=== PATIENT | male | born 1955 | race Caucasian/White ===

== ENCOUNTER 2023-08-05 01:00 | Observation (INO) | payer MEDICARE ==
[2023-08-05] MEDS ORDERED: SODIUM CHLORIDE 0.9% 500 ML 500 ML IV STA (01:15)
[2023-08-05 01:17] LABS: Glucose,Whole Blood 157 mg/dL (70-110)
[2023-08-05 01:29] LABS: Anisocytosis Slight; Basophils % (A) 0 %; Eosinophils # (A) 0.3 k/uL (0-0.7); Eosinophils % (A) 8 %; HCT 31.1 % (39.0-53.0); HGB 9.8 gm/dL (13.0-17.5); Hypochromasia Marked; Lymphocytes # (A) 1.1 k/uL (1.0-4.8); Lymphocytes % (A) 26 %; MCH 24.5 pg (25.0-35.0); MCHC 31.4 g/dL (31.0-37.0); Mean Platelet Volume 8.3; Microcytosis Slight; Monocytes # (A) 0.2 k/uL (0-1.0); Monocytes % (A) 6 %; Neutrophils # (A) 2.4 k/uL (1.3-7.7); Neutrophils % (A) 58 %; Platelet Count 178 k/uL (150-450); RBC 3.98 m/uL (4.30-5.90); RDW 16.2 % (11.5-15.5); WBC 4.2 k/uL (3.8-10.6)
[2023-08-05 01:37] LABS: ALT 15 U/L (4-49); AST 23 U/L (17-59); African American GFR (CKD) 86 (>60 ml/min/1.73 sqM); Albumin 3.8 g/dL (3.5-5.0); Alkaline Phosphatase 47 U/L (38-126); Anion Gap 12 mmol/L; Blood Urea Nitrogen 8 mg/dL (9-20); Calcium 8.9 mg/dL (8.4-10.2); Carbon Dioxide 21 mmol/L (22-30); Chloride 102 mmol/L (98-107); Glucose 156 mg/dL (74-99); Magnesium 1.5 mg/dL (1.6-2.3); Non-African American GFR(CKD) 75 (>60 ml/min/1.73 sqM); Potassium 3.7 mmol/L (3.5-5.1); Sodium 135 mmol/L (137-145); Total Bilirubin 0.5 mg/dL (0.2-1.3)
[2023-08-05 01:57] LABS: Alcohol <10 mg/dL
[2023-08-05 02:08] LABS: INR 1.4 (<1.2); Partial Thromboplastin Time 23.5 sec (22.0-30.0); Prothrombin Time 14.1 sec (10.0-12.5)
--- NOTE | 2023-08-05 02:15 | ED ---
General Adult HPI - General Chief complaint: Syncope Stated complaint: Syncope Time Seen by Provider: 08/05/23 01:30 Source: EMS Mode of arrival: EMS Limitations: no limitations - History of Present Illness Initial comments: 67-year-old male with past medical history of A. fib who presents to the emergency department after he had a syncopal episode. Patient states that he wasn't really feeling well this evening. He was can use the restroom before he went to bed. He walked into the bathroom and passed out. He fell hitting his head on the wall. He had a loss of consciousness of approximately 1 minute. His heard him fall. She and her 2 sons attempted to pick the patient up however he was extremely weak. There is no seizure-like activity. The patient does take xarelto. He denies any headaches or visual changes. Denies any chest pain or shortness of breath. No nausea or vomiting. Denies any neck or back pain. No abdominal pain. No recent illnesses. No recent medication changes. No other alleviating, precipitating or modifying factors - Related Data Allergies Allergy/AdvReac Type Severity Reaction Status Date / Time Penicillins Allergy Rash/Hives Verified 08/05/23 01:34 Review of Systems ROS Statement: Those systems with pertinent positive or pertinent negative responses have been documented in the HPI. ROS Other: All systems not noted in ROS Statement are negative. General Exam Limitations: no limitations General appearance: alert, in no apparent distress Head exam: Present: normocephalic, other (Abrasion to the chin and right parietal region. No obvious step-offs) Eye exam: Present: normal appearance, PERRL, EOMI. Absent: scleral icterus, conjunctival injection, periorbital swelling ENT exam: Present: normal exam, mucous membranes moist Neck exam: Present: normal inspection. Absent: tenderness, meningismus, lymphadenopathy Respiratory exam: Present: normal lung sounds bilaterally. Absent: respiratory distress, wheezes, rales, rhonchi, stridor Cardiovascular Exam: Present: regular rate, normal rhythm, normal heart sounds. Absent: systolic murmur, diastolic murmur, rubs, gallop, clicks GI/Abdominal exam: Present: soft, normal bowel sounds. Absent: distended, tenderness, guarding, rebound, rigid Extremities exam: Present: normal inspection, full ROM, normal capillary refill. Absent: tenderness, pedal edema, joint swelling, calf tenderness Back exam: Present: normal inspection Neurological exam: Present: alert, oriented X3, CN II-XII intact Psychiatric exam: Present: normal affect, normal mood Skin exam: Present: warm, dry, intact, normal color. Absent: rash Course Vital Signs 08/05/23 08/05/23 01:23 02:48 Pulse Rate 75 Pulse Rate [ 80 Sitting Professor Of Food Biochemistry] Pulse Rate [ 89 Standing Professor Of Food Biochemistry ] Pulse Rate [ 67 Supine Professor Of Food Biochemistry] Respiratory 18 Rate Blood Pressure 116/67 Blood Pressure 115/58 [Left Arm Sitting] Blood Pressure 114/62 [Left Arm Standing] Blood Pressure 106/66 [Left Arm Supine] O2 Sat by Pulse 98 Oximetry Medical Decision Making - Medical Decision Making Was pt. sent in by a medical professional or institution (, [facility], STACKER, urgent care, hospital, or shelter...) When possible be specific @ -No Did you speak to anyone other than the patient for history (EMS, parent, family, police, friend...)? What history was obtained from this source @ -Spoke with EMS and the for history Did you review nursing and triage notes (agree or disagree)? Why? @ -I reviewed and agree with nursing and triage notes Were old charts reviewed (outside hosp., previous admission, EMS record, old EKG, old radiological studies, urgent care reports/EKG's, shelter records)? Report findings @ -No old charts were reviewed Differential Diagnosis (chest pain, altered mental status, abdominal pain women, abdominal pain men, vaginal bleeding, weakness, fever, dyspnea, syncope, headache, dizziness, GI bleed, back pain, seizure, CVA, palpatations, mental health, musculoskeletal)? @ -Differential Syncope: Valvular disease, hypertrophic cardiomyopathy, pulmonary embolism, tamponade, tachycardia, bradycardia, UT, hypovolemia, hemorrhage, dissection, anemia, intracranial hemorrhage, seizure, hypoglycemia, carbon monoxide poisoning, this is not meant to be an all-inclusive list. EKG interpreted by me (3pts min.). @ -Yes and demonstrates A. fib with a rate of 53. QRS 100. QTC of 421. No acute ST segment elevations or depressions X-rays interpreted by me (1pt min.). @ -Yes and demonstrates no acute intrathoracic process CT interpreted by me (1pt min.). @ -Yes and demonstrates no acute intracranial process U/S interpreted by me (1pt. min.). @ -None done What testing was considered but not performed or refused? (CT, X-rays, U/S, labs)? Why? @ -None What meds were considered but not given or refused? Why? @ -None Did you discuss the management of the patient with other professionals (professionals i.e. DrAndreina, PA, STACKER, lab, RT, psych nurse, social media strategist, mimeograph operator, teacher, canine enforcement officer, foster care case manager)? Give summary @ -Spoke with Maggie from [facility] who agreed to admit the patient Was smoking cessation discussed for >3mins.? @ -No Was critical care preformed (if so, how long)? @ -No Were there social determinants of health that impacted care today? How? (Homelessness, low income, unemployed, alcoholism, drug addiction, transportation, low edu. Level, literacy, decrease access to med. care, halfway, rehab)? @ -No Was there de-escalation of care discussed even if they declined (Discuss DNR or withdrawal of care, Hospice)? DNR status @ -No What co-morbidities impacted this encounter? (DM, HTN, Smoking, COPD, CAD, Cancer, CVA, ARF, Chemo, Hep., AIDS, mental health diagnosis, sleep apnea, morbid obesity)? @ -A. fib Was patient admitted / discharged? Hospital course, mention meds given and route, prescriptions, significant lab abnormalities, going to OR and other pertinent info. @ -Upon arrival patient was placed in a trauma 1. History and physical exam was performed. He is hooked to continuous pulse ox and cardiac monitoring. 12-lead EKG is obtained which demonstrates A. fib. EMS had noted that the patient was bradycardic into the 40s for them. Laboratory studies are conducted. He is se nt for chest x-ray and a CT of his brain as he did fall and have a head injury on anticoagulation. Laboratory studies demonstrate a microcytic anemia. Patient also has low magnesium. This is replaced. CT brain does not demonstrate any acute intracranial process. I did recommend admission due to his bradycardia. Patient was agreeable to this. Spoke with Maggie from [facility] who agreed to admit the patient. Undiagnosed new problem with uncertain prognosis? @ -yes Drug Therapy requiring intensive monitoring for toxicity (Heparin, Nitro, Insulin, Cardizem)? @ -No Were any procedures done? @ -No Diagnosis/symptom? @ -Acute syncope, blunt head trauma, forehead abrasion, A. fib with slow ventricular response Acute, or Chronic, or Acute on Chronic? @ -Acute Uncomplicated (without systemic symptoms) or Complicated (systemic symptoms)? @ -complicated Side effects of treatment? @ -No Exacerbation, Progression, or Severe Exacerbation? @ -No Poses a threat to life or bodily function? How? (Chest pain, USA, UT, pneumonia, PE, COPD, DKA, ARF, appy, cholecystitis, CVA, Diverticulitis, Homicidal, Suicidal, threat to staff... and all critical care pts) @ -No - Lab Data Result diagrams: 08/05/23 01:06 08/05/23 01:06 Lab Results 08/05/23 08/05/23 08/05/23 Range/Units 01:06 01:06 01:06 WBC 4.2 (3.8-10.6) k/uL RBC 3.98 L (4.30-5.90) m/uL Hgb 9.8 L (13.0-17.5) gm/dL Hct 31.1 L (39.0-53.0) % MCV 78.0 L (80.0-100.0) fL MCH 24.5 L (25.0-35.0) pg MCHC 31.4 (31.0-37.0) g/dL RDW 16.2 H (11.5-15.5) % Plt Count 178 (150-450) k/uL MPV 8.3 Neutrophils % 58 % Lymphocytes % 26 % Monocytes % 6 % Eosinophils % 8 % Basophils % 0 % Neutrophils # 2.4 (1.3-7.7) k/uL Lymphocytes # 1.1 (1.0-4.8) k/uL Monocytes # 0.2 (0-1.0) k/uL Eosinophils # 0.3 (0-0.7) k/uL Basophils # 0.0 (0-0.2) k/uL Hypochromasia Marked Anisocytosis Slight Microcytosis Slight PT 14.1 H (10.0-12.5) sec INR 1.4 H (<1.2) APTT 23.5 (22.0-30.0) sec Sodium 135 L (137-145) mmol/L Potassium 3.7 (3.5-5.1) mmol/L Chloride 102 (98-107) mmol/L Carbon Dioxide 21 L (22-30) mmol/L Anion Gap 12 mmol/L BUN 8 L (9-20) mg/dL Creatinine 1.03 (0.66-1.25) mg/dL Est GFR (CKD-EPI)AfAm 86 (>60 ml/min/1.73 sqM) Est GFR (CKD-EPI)NonAf 75 (>60 ml/min/1.73 sqM) Glucose 156 H (74-99) mg/dL POC Glucose (mg/dL) (70-110) mg/dL POC Glu Gate Tender ID Calcium 8.9 (8.4-10.2) mg/dL Magnesium 1.5 L (1.6-2.3) mg/dL Total Bilirubin 0.5 (0.2-1.3) mg/dL AST 23 (17-59) U/L ALT 15 (4-49) U/L Alkaline Phosphatase 47 (38-126) U/L Troponin I (0.000-0.034) ng/mL Total Protein 7.0 (6.3-8.2) g/dL Albumin 3.8 (3.5-5.0) g/dL Serum Alcohol <10 mg/dL 08/05/23 08/05/23 Range/Units 01:06 01:16 WBC (3.8-10.6) k/uL RBC (4.30-5.90) m/uL Hgb (13.0-17.5) gm/dL Hct (39.0-53.0) % MCV (80.0-100.0) fL MCH (25.0-35.0) pg MCHC (31.0-37.0) g/dL RDW (11.5-15.5) % Plt Count (150-450) k/uL MPV Neutrophils % % Lymphocytes % % Monocytes % % Eosinophils % % Basophils % % Neutrophils # (1.3-7.7) k/uL Lymphocytes # (1.0-4.8) k/uL Monocytes # (0-1.0) k/uL Eosinophils # (0-0.7) k/uL Basophils # (0-0.2) k/uL Hypochromasia Anisocytosis Microcytosis PT (10.0-12.5) sec INR (<1.2) APTT (22.0-30.0) sec Sodium (137-145) mmol/L Potassium (3.5-5.1) mmol/L Chloride (98-107) mmol/L Carbon Dioxide (22-30) mmol/L Anion Gap mmol/L BUN (9-20) mg/dL Creatinine (0.66-1.25) mg/dL Est GFR (CKD-EPI)AfAm (>60 ml/min/1.73 sqM) Est GFR (CKD-EPI)NonAf (>60 ml/min/1.73 sqM) Glucose (74-99) mg/dL POC Glucose (mg/dL) 157 H (70-110) mg/dL POC Glu Gate Tender ID Pepito Solano Calcium (8.4-10.2) mg/dL Magnesium (1.6-2.3) mg/dL Total Bilirubin (0.2-1.3) mg/dL AST (17-59) U/L ALT (4-49) U/L Alkaline Phosphatase (38-126) U/L Troponin I <0.012 (0.000-0.034) ng/mL Total Protein (6.3-8.2) g/dL Albumin (3.5-5.0) g/dL Serum Alcohol mg/dL Disposition Clinical Impression: Syncope, Bradycardia, Blunt head trauma, Anticoagulant effect, Hypomagnesemia, Afib, Anemia Disposition: ADMITTED IP TO THIS [facility] Condition: Stable Is patient prescribed a controlled substance at d/c from ED?: No Time of Disposition: :44 Decision to Admit Reason: Admit from EC Decision Date: 08/05/23 Decision Time: :44
[2023-08-05] MEDS ORDERED: MAGNESIUM SULFATE-D5W PMX 1 GM in DEXTROSE/WATER 1 100ML.BAG IVPB ONE (02:26)
--- NOTE | 2023-08-05 02:32 | CT ---
EXAM: CT Head Without Intravenous Contrast CLINICAL HISTORY: ITS.REASON CT Reason: syncope, head injury on eliquis TECHNIQUE: Axial computed tomography images of the head/brain without intravenous contrast. CTDI is 45.2 mGy and DLP is 1125 mGy-cm. This CT exam was performed using one or more of the following dose reduction techniques: automated exposure control, adjustment of the mA and/or kV according to patient size, and/or use of iterative reconstruction technique. COMPARISON: None FINDINGS: Brain: No acute infarct or hemorrhage identified. No extra-axial fluid collection. No mass effect or midline shift. Scattered areas of hypoattenuation in the supratentorial white matter likely represent chronic small vessel ischemic changes. Ventricles and sulci: Prominence of the ventricles and sulci is likely secondary to cerebral volume loss. Bones: Normal. No bony lesion or acute fracture. Subcutaneous tissues: Normal. Sinuses: Mild mucosal thickening in the maxillary sinuses. Small polyp versus mucous retention cyst in the left sphenoid sinus. Mild mucosal thickening in the ethmoid air cells. Mastoid air cells: Normal. Orbits: Grossly unremarkable. Other: Atherosclerotic calcifications in the intracranial vasculature. IMPRESSION: 1. No acute intracranial abnormality. 2. Mild chronic small vessel ischemic changes and cerebral volume loss. EXAM: CT Cervical Spine Without Intravenous Contrast CLINICAL HISTORY: ITS.REASON CT Reason: syncope, head injury on eliquis TECHNIQUE: Axial computed tomography images of the cervical spine without intravenous contrast. CTDI is 10.8 mGy and DLP is 338 mGy-cm. This CT exam was performed using one or more of the following dose reduction techniques: automated exposure control, adjustment of the mA and/or kV according to patient size, and/or use of iterative reconstruction technique. COMPARISON: None FINDINGS: Bones: Normal alignment. No acute fracture or bony lesion. Disc spaces: No subluxation. Degenerative changes of the spine. Soft tissues: Normal. Other: Mild paranasal sinus disease. . Atherosclerotic changes of the vasculature. Emphysematous changes in the visualized upper lungs. IMPRESSION: No acute traumatic abnormality.
[2023-08-05] MEDS ORDERED: NALOXONE 0.4 MG/ML 1 ML VIAL IV PRN (02:44)
[2023-08-05] MEDS: SODIUM CHLORIDE 0.9% 1,000 ML IV SCH ×2 (03:24→15:52)
--- NOTE | 2023-08-05 06:34 | XR ---
EXAM: XR Chest, 2 Views CLINICAL HISTORY: ITS.REASON XR Reason: syncope TECHNIQUE: Frontal and lateral views of the chest. COMPARISON: No relevant prior studies available. IMPRESSION: 1. Cardiomegaly without acute cardiopulmonary abnormality.
[2023-08-05] MEDS ORDERED: ACETAMINOPHEN TAB 500 MG TAB PO PRN (08:07)
[2023-08-05] MEDS ORDERED: ALBUTEROL NEBULIZED 2.5 MG/3 ML INHALATION PRN (08:07)
--- NOTE | 2023-08-05 08:13 | P.HPIM ---
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 No wound. No urine or bowel incontinence. He had some dizziness. But not rest pain. No abdominal pain vomiting or diarrhea. No urinary complaints. He denies smoking alcohol or illicit drugs. Currently he complains fine, no weakness or numbness in the upper or lower extremity, his right leg flexion of the hip as possible but associated with some pain in the area after he fell. Therefore we will check chest x-ray Labs reviewed showing mild anemia with 9.8, rest of CBC, BMP liver enzymes are unremarkable Chest x-ray showed cardiomegaly with no consolidation or acute process EKG: Showing atrial fibrillation with slow ventricular rate at [address] of the brain: No acute process CT negative for acute processof the cervical spine Review of Systems Review of systems CONSTITUTIONAL: No fever, no malaise, no fatigue. HEENT: No recent visual problems or hearing problems. Denied any sore throat. CARDIOVASCULAR: No orthopnea, PND, no palpitations, no syncope. PULMONARY: No shortness of breath, no cough, no hemoptysis. GASTROINTESTINAL: No diarrhea, no nausea, no vomiting, no abdominal pain. Normoactive bowel sounds. NEUROLOGICAL: No headaches, no weakness, no numbness. HEMATOLOGICAL: Denies any bleeding or petechiae. GENITOURINARY: Denies any burning micturition, frequency, or urgency. MUSCULOSKELETAL/RHEUMATOLOGICAL: Denies any joint pain, swelling, or any muscle pain. ENDOCRINE: Denies any polyuria or polydipsia. Medications and Allergies Home Medications Medication Instructions Recorded Confirmed Type Acetaminophen Tab [Tylenol Tab] 1,000 mg PO Q8H PRN 08/05/23 08/05/23 History Albuterol Sulfate [Albuterol 2 puff PO RT-Q4H PRN 08/05/23 08/05/23 History Sulfate Hfa] Atorvastatin [Lipitor] 10 mg PO HS 08/05/23 08/05/23 History Baclofen 10 mg PO BID 08/05/23 08/05/23 History Cholecalciferol [Vitamin D3 (25 50 mcg PO DAILY 08/05/23 08/05/23 History Mcg = 1000 Iu)] Digoxin [Digitek] 125 mcg PO DAILY 08/05/23 08/05/23 History Metoprolol Tartrate [Lopressor] 75 mg PO BID 08/05/23 08/05/23 History Omeprazole [PriLOSEC] 40 mg PO AC-BID 08/05/23 08/05/23 History Rivaroxaban [Xarelto] 20 mg PO HS 08/05/23 08/05/23 History allopurinoL 300 mg PO DAILY 08/05/23 08/05/23 History metFORMIN HCL ER [Glucophage XR] 500 mg PO PC-BID@0900,1300 08/05/23 08/05/23 History traZODone HCL [Desyrel] 100 mg PO HS 08/05/23 08/05/23 History Allergies Allergy/AdvReac Type Severity Reaction Status Date / Time Penicillins Allergy Rash/Hives Verified 08/05/23 06:50 Physical Exam Vitals: Vital Signs Pulse Pulse Pulse Pulse Resp BP BP 08/05/23 06:33 58 L 18 116/68 08/05/23 05:04 64 18 121/69 08/05/23 02:48 80 89 67 115/58 08/05/23 01:23 75 18 116/67 BP BP Pulse Ox 08/05/23 06:33 97 08/05/23 05:04 97 08/05/23 02:48 114/62 106/66 08/05/23 01:23 98 Intake and Output 08/04/23 08/05/23 08/05/23 22:59 06:59 14:59 Other: Weight 81.647 kg GENERAL: The patient is alert and oriented x3, not in any acute distress. Well developed, well nourished. HEENT: Pupils are round and equally reacting to light. EOMI. No scleral icterus. No conjunctival pallor. Normocephalic, atraumatic. No pharyngeal erythema. No thyromegaly. CARDIOVASCULAR: S1 and S2 present. No murmurs, rubs, or gallops. PULMONARY: Chest is clear to auscultation, no wheezing , no crackles. ABDOMEN: Soft, nontender, nondistended, normoactive bowel sounds. No palpable organomegaly. MUSCULOSKELETAL: No joint swelling or deformity. EXTREMITIES: No cyanosis, clubbing, or pedal edema. NEUROLOGICAL: Gross neurological examination did not reveal any focal deficits. SKIN: No rashes. no petechiae. Results CBC & Chem 7: 08/05/23 01:06 08/05/23 01:06 Labs: Abnormal Lab Results - Last 24 Hours (Table) 08/05/23 08/05/23 08/05/23 Range/Units 01:06 01:06 01:06 RBC 3.98 L (4.30-5.90) m/uL Hgb 9.8 L (13.0-17.5) gm/dL Hct 31.1 L (39.0-53.0) % MCV 78.0 L (80.0-100.0) fL MCH 24.5 L (25.0-35.0) pg RDW 16.2 H (11.5-15.5) % PT 14.1 H (10.0-12.5) sec INR 1.4 H (<1.2) Sodium 135 L (137-145) mmol/L Carbon Dioxide 21 L (22-30) mmol/L BUN 8 L (9-20) mg/dL Glucose 156 H (74-99) mg/dL POC Glucose (mg/dL) (70-110) mg/dL Magnesium 1.5 L (1.6-2.3) mg/dL 08/05/23 Range/Units 01:16 RBC (4.30-5.90) m/uL Hgb (13.0-17.5) gm/dL Hct (39.0-53.0) % MCV (80.0-100.0) fL MCH (25.0-35.0) pg RDW (11.5-15.5) % PT (10.0-12.5) sec INR (<1.2) Sodium (137-145) mmol/L Carbon Dioxide (22-30) mmol/L BUN (9-20) mg/dL Glucose (74-99) mg/dL POC Glucose (mg/dL) 157 H (70-110) mg/dL Magnesium (1.6-2.3) mg/dL Assessment and Plan Assessment: Syncope with fall and blunt head trauma persistant atrial fibrillation on Xarelto with slow VR Hypertension Diabetes mellitus Hyperlipidemia Plan: Continue with telemetry monitoring Cardiology consult Check digoxin level. May consider discontinuing digoxin per roofing contractor Follow-up echocardiogram Labs and medication were reviewed.. Continue same treatment. Continue with symptomatic treatment. Resume home medication. Monitor labs and vitals. DVT and GI prophylaxis. Further recommendations as per clinical course of the patient DVT prophylaxis:xarelto GI Prophylaxis: Pepcid PT/OT: Pending Prognosis is guarded
[2023-08-05] MEDS: metFORMIN 500 MG TAB PO SCH ×2 (09:25→15:52)
[2023-08-05] MEDS: METOPROLOL TARTRATE 25 MG TAB PO SCH ×2 (09:25→19:36)
[2023-08-05] MEDS: BACLOFEN 10 MG TAB PO SCH ×2 (09:25→19:36)
[2023-08-05] MEDS: allopurinoL 300 MG TAB PO SCH (09:25)
--- NOTE | 2023-08-05 09:36 | XR ---
EXAMINATION TYPE: XR Hip Complete 2 views RT DATE OF EXAM: 08/05/2023 Comparison: None Clinical History: 67-year-old male fall with groin pain Findings: No acute fracture, subluxation, or dislocation seen. Mild axial joint space narrowing. No acute fract ure, subluxation, dislocation seen. Impression: Mild degenerative axial joint space narrowing. No acute osseous abnormality seen.
[2023-08-05 11:19] LABS: % Iron Saturation 3.69 (15.00-50.00)
--- NOTE | 2023-08-05 11:22 | CA ---
Transthoracic Echo Report Name: Octaviano Tan Age: 67 Gender: M : 1955 Exam Date: 08/05/2023 09:08 Exam Location: [place] [facility] Ht (in): 70 Wt (lb): 180 Ordering Physician: Rylie Zavala DO Attending/Referring Phys: [id number], Lucas Cupola Tapper Helper Kennedi Kennedy [facility] Procedure CPT: Indications: Syncope Cardiac Hx: Technical Quality: Fair Contrast 1: Total Dose (mL): Contrast 2: Total Dose (mL): MEASUREMENTS (Male / Female) Normal Values 2D ECHO LV Diastolic Diameter PLAX 5.3 cm 4.2 - 5.9 / 3.9 - 5.3 cm LV Systolic Diameter PLAX 3.8 cm IVS Diastolic Thickness 0.8 cm 0.6 - 1.0 / 0.6 - 0.9 cm LVPW Diastolic Thickness 0.9 cm 0.6 - 1.0 / 0.6 - 0.9 cm LV Relative Wall Thickness 0.3 LVOT Diameter 2.0 cm Ascending Aorta Diameter 3.4 cm M-MODE Aortic Root Diameter MM 3.3 cm LA Systolic Diameter MM 4.1 cm LA Ao Ratio MM 1.2 AV Cusp Separation MM 2.0 cm DOPPLER AV Peak Velocity 140.4 cm/s AV Peak Gradient 7.9 mmHg AV Mean Velocity 89.6 cm/s AV Mean Gradient 3.9 mmHg AV Velocity Time Integral 28.5 cm LVOT Peak Velocity 103.8 cm/s LVOT Peak Gradient 4.3 mmHg LVOT Velocity Time Integral 24.1 cm LVOT Stroke Volume 74.1 cm??? LVOT Stroke Volume Index 37.1 ml/m??? LVOT Cardiac Index 2091.8 cm???/min???m??? AV Area Cont Eq vti 2.6 cm??? AV Area Cont Eq pk 2.3 cm??? Mitral E Point Velocity 79.3 cm/s Mitral A Point Velocity 68.7 cm/s Mitral E to A Ratio 1.2 MV Deceleration Time 128.7 ms LV E' Lateral Velocity 8.9 cm/s Mitral E to LV E' Lateral Ratio 8.9 LV E' Septal Velocity 7.5 cm/s Mitral E to LV E' Septal Ratio 10.5 TR Peak Velocity 184.5 cm/s TR Peak Gradient 13.6 mmHg Right Atrial Pressure 8.0 mmHg Pulmonary Artery Systolic Pressu 21.6 mmHg Right Ventricular Systolic Press 21.6 mmHg FINDINGS Left Ventricle Left ventricular wall thickness normal. Left ventricular cavity size normal. Normal left ventricular systolic function with no obvious regional wall motion abnormalities. Left ventricular ejection fraction is estimated at 55%. Right Ventricle Mild right ventricular dilatation. Right Atrium Mild right atrial dilatation. Left Atrium Severe left atrial dilatation. Mitral Valve Mitral valve thickened. No mitral regurgitation. Aortic Valve Trileaflet aortic valve. No aortic valve stenosis or regurgitation. Tricuspid Valve Structurally normal tricuspid valve. Trace tricuspid regurgitation. Pulmonic Valve Pulmonic valve not well visualized. Pericardium No pericardial effusion Aorta Normal size aortic root and proximal ascending aorta. CONCLUSIONS Normal LV size and systolic function. No significant abnormality in the Doppler exam. No pericardial effusion Previewed by: Dr. Shital Abdullahi MD (Electronically Signed) Final Date: 05 August 2023 11:22
--- NOTE | 2023-08-05 12:08 | P.CRDCN ---
History of Present Illness History of present illness: HISTORY OF PRESENT ILLNESS: This is a 67-year-old male with a past medical history significant for with diabetes, hyperlipidemia, and paroxysmal atrial fibrillation. Patient follows with Dr. Garcia. We have been asked to see the patient in consultation for syncope and A. fib with slow ventricular rate. Patient examined at the bedside in the emergency room. The patient states he was walking to the bathroom and passed out. He does report losing consciousness. He states he did not eat much yesterday. He reports having breakfast but states he did not have any lunch or dinner. He states he has had not had much of an appetite since having his colostomy reversal 3 or 4 months ago. He denies any previous episodes of syncope. He denies chest pain or pressure. He denies shortness of breath. Telemetry reveals sinus bradycardia with heart rate ranging between 4060 at the time of examination. * EKG reveals atrial fibrillation with slow ventricular rate * Chest xray cardiomegaly without acute cardiopulmonary process * Laboratory data: Troponin negative 3 * Current home cardiac medications include Lipitor 10 g at night, Xarelto 20 mg at night, metoprolol 75 mg twice a day, and digoxin 125 g daily * Echocardiogram completed revealing ejection fraction 55% with trace TR REVIEW OF SYSTEMS: At the time of my exam: CONSTITUTIONAL: Denies fever or chills. HEENT: Denies blurred vision, vision changes, or eye pain. Denies hemoptysis CARDIOVASCULAR: Denies chest pain. Denies orthopnea. Denies PND. Denies palpitations RESPIRATORY: Denies shortness of breath. GASTROINTESTINAL: Denies abdominal pain. Denies nausea or vomiting. HEMATOLOGIC: Denies bleeding disorders. GENITOURINARY: Denies any blood in urine. SKIN: Denies pruitis. Denies rash. PHYSICAL EXAM: VITAL SIGNS: Reviewed. GENERAL: Well-developed in no acute distress. HEENT: Head is normocephalic. Pupils are equal, round. Sclerae anicteric. Mucous membranes of the mouth are moist. Neck supple. No JVD or thyromegaly LUNGS: Respirations even and unlabored. Lungs essentially clear to auscultation bilaterally. HEART: Regular rate and rhythm. S1 and S2 heard. ABDOMEN: Soft. Nondistended. Nontender. EXTREMITIES: Normal range of motion. No clubbing or cyanosis. Peripheral pulses intact. No lower extremity edema NEUROLOGIC: Awake and alert. Oriented x 3. ASSESSMENT: Syncope Paroxysmal atrial fibrillation with slow ventricular rate Sinus bradycardia Hyperlipidemia Diabetes PLAN: Discontinue Digoxin Continue current dose of metoprolol 75 mg twice a day Continue additional cardiac medications Check TSH Continue telemetry monitoring Further recommendations pending patient's course Nurse practitioner note has been reviewed by physician. Signing provider agrees with the documented findings, assessment, and plan of care. Medications and Allergies Home Medications Medication Instructions Recorded Confirmed Type Acetaminophen Tab [Tylenol Tab] 1,000 mg PO Q8H PRN 08/05/23 08/05/23 History Albuterol Sulfate [Albuterol 2 puff PO RT-Q4H PRN 08/05/23 08/05/23 History Sulfate Hfa] Atorvastatin [Lipitor] 10 mg PO HS 08/05/23 08/05/23 History Baclofen 10 mg PO BID 08/05/23 08/05/23 History Cholecalciferol [Vitamin D3 (25 50 mcg PO DAILY 08/05/23 08/05/23 History Mcg = 1000 Iu)] Digoxin [Digitek] 125 mcg PO DAILY 08/05/23 08/05/23 History Metoprolol Tartrate [Lopressor] 75 mg PO BID 08/05/23 08/05/23 History Omeprazole [PriLOSEC] 40 mg PO AC-BID 08/05/23 08/05/23 History Rivaroxaban [Xarelto] 20 mg PO HS 08/05/23 08/05/23 History allopurinoL 300 mg PO DAILY 08/05/23 08/05/23 History metFORMIN HCL ER [Glucophage XR] 500 mg PO PC-BID@0900,1300 08/05/23 08/05/23 History traZODone HCL [Desyrel] 100 mg PO HS 08/05/23 08/05/23 History Allergies Allergy/AdvReac Type Severity Reaction Status Date / Time Penicillins Allergy Rash/Hives Verified 08/05/23 06:50 Physical Exam Vitals: Vital Signs Pulse Pulse Pulse Pulse Resp BP BP 08/05/23 06:33 58 L 18 116/68 08/05/23 05:04 64 18 121/69 08/05/23 02:48 80 89 67 115/58 08/05/23 01:23 75 18 116/67 BP BP Pulse Ox 08/05/23 06:33 97 08/05/23 05:04 97 08/05/23 02:48 114/62 106/66 08/05/23 01:23 98 Intake and Output 08/04/23 08/05/23 08/05/23 22:59 06:59 14:59 Other: Weight 81.647 kg Results 08/05/23 01:06 08/05/23 01:06 Cardiac Enzymes 08/05/23 08/05/23 08/05/23 Range/Units 01:06 01:06 04:14 AST 23 (17-59) U/L Troponin I <0.012 <0.012 (0.000-0.034) ng/mL 08/05/23 Range/Units 06:19 AST (17-59) U/L Troponin I <0.012 (0.000-0.034) ng/mL Coagulation 08/05/23 Range/Units 01:06 PT 14.1 H (10.0-12.5) sec APTT 23.5 (22.0-30.0) sec CBC 08/05/23 Range/Units 01:06 WBC 4.2 (3.8-10.6) k/uL RBC 3.98 L (4.30-5.90) m/uL Hgb 9.8 L (13.0-17.5) gm/dL Hct 31.1 L (39.0-53.0) % Plt Count 178 (150-450) k/uL Comprehensive Metabolic Panel 08/05/23 Range/Units 01:06 Sodium 135 L (137-145) mmol/L Potassium 3.7 (3.5-5.1) mmol/L Chloride 102 (98-107) mmol/L Carbon Dioxide 21 L (22-30) mmol/L BUN 8 L (9-20) mg/dL Creatinine 1.03 (0.66-1.25) mg/dL Glucose 156 H (74-99) mg/dL Calcium 8.9 (8.4-10.2) mg/dL AST 23 (17-59) U/L ALT 15 (4-49) U/L Alkaline Phosphatase 47 (38-126) U/L Total Protein 7.0 (6.3-8.2) g/dL Albumin 3.8 (3.5-5.0) g/dL Current Medications Generic Name Dose Route Start Last Admin Trade Name Freq PRN Reason Stop Dose Admin Sodium Chloride 1,000 mls @ 75 mls/hr 08/05/23 02:45 08/05/23 03:24 Saline 0.9% IV 75 mls/hr .[id number] TOBIN Administration Naloxone HCl 0.2 mg 08/05/23 02:44 Naloxone 0.4 Mg/Ml 1 Ml Vial IV Q2M PRN Opioid Reversal Intake and Output 08/04/23 08/05/23 08/05/23 22:59 06:59 14:59 Other: Weight 81.647 kg 08/05/23 01:06 08/05/23 01:06
[2023-08-05 16:27] LABS: Glucose,Whole Blood 139 mg/dL (70-110)
[2023-08-05 19:54] LABS: Glucose,Whole Blood 122 mg/dL (70-110)
[2023-08-05] MEDS ORDERED: ATORVASTATIN 10 MG TAB PO SCH (21:00)
[2023-08-05] MEDS ORDERED: traZODone HCL 50 MG TAB PO SCH (21:00)
[2023-08-05] MEDS ORDERED: RIVAROXABAN 20 MG TAB PO SCH (21:00)
[2023-08-06 03:30] VITALS: TEMP 97.8
[2023-08-06] MEDS: SODIUM CHLORIDE 0.9% 1,000 ML IV SCH (05:22)
[2023-08-06 06:20] LABS: Glucose,Whole Blood 108 mg/dL (70-110)
[2023-08-06] MEDS: metFORMIN 500 MG TAB PO SCH ×2 (08:17→11:58)
[2023-08-06] MEDS: allopurinoL 300 MG TAB PO SCH (08:17)
[2023-08-06] MEDS: BACLOFEN 10 MG TAB PO SCH (08:17)
[2023-08-06] MEDS: METOPROLOL TARTRATE 25 MG TAB PO SCH (08:17)
[2023-08-06 09:25] LABS: Basophils % (A) 0 %; Eosinophils # (A) 0.3 k/uL (0-0.7); Eosinophils % (A) 8 %; HCT 33.9 % (39.0-53.0); HGB 9.7 gm/dL (13.0-17.5); Hypochromasia Marked; Lymphocytes # (A) 0.9 k/uL (1.0-4.8); Lymphocytes % (A) 20 %; MCH 23.2 pg (25.0-35.0); MCHC 28.5 g/dL (31.0-37.0); MCV 81.3 fL (80.0-100.0); Mean Platelet Volume 9.2; Monocytes # (A) 0.3 k/uL (0-1.0); Monocytes % (A) 6 %; Neutrophils # (A) 2.7 k/uL (1.3-7.7); Neutrophils % (A) 63 %; Platelet Count 162 k/uL (150-450); RBC 4.17 m/uL (4.30-5.90); WBC 4.3 k/uL (3.8-10.6)
[2023-08-06 09:40] LABS: African American GFR (CKD) 89 (>60 ml/min/1.73 sqM); Anion Gap 7 mmol/L; Blood Urea Nitrogen 8 mg/dL (9-20); Calcium 8.6 mg/dL (8.4-10.2); Carbon Dioxide 29 mmol/L (22-30); Chloride 103 mmol/L (98-107); Glucose 157 mg/dL (74-99); Non-African American GFR(CKD) 77 (>60 ml/min/1.73 sqM); Potassium 4.6 mmol/L (3.5-5.1); Sodium 139 mmol/L (137-145)
--- NOTE | 2023-08-06 11:54 | P.PN ---
Subjective Progress Note Date: 08/06/23 The patient is a 67-year-old male admitted with syncope. On the time of his arrival he was noted to be in persistent atrial fibrillation with slow ventricular rate. He was on both digoxin and beta varun. Orthostatic blood pressures were negative. Heart rates have improved since discontinuation of dig oxin Patient was interviewed and examined resting comfortably in bed. He states he did contact his band saw marker office yesterday and was previously told to discontinue his digitoxin by his primary band saw marker, however it was resumed by his on exam. Since he's been in the hospital he has not had any recurrence of dizziness or lightheadedness. No chest pain or difficulty breathing. GENERAL: Well-appearing, well-nourished and in no acute distress. NECK: Supple without JVD or thyromegaly. LUNGS: Breath sounds clear to auscultation bilaterally. Respiration equal and unlabored. No wheezes, rales or rhonchi. HEART: Irregular rate and rhythm without murmurs, rubs or gallops. S1 and S2 he kalia. EXTREMITIES: Normal range of motion, no edema. No clubbing or cyanosis. Peripheral pulses intact and strong. TELEMETRY: Persistent atrial fibrillation with heart rates in the 50s LABS: WBC 4.3, hemoglobin 9.7, hematocrit 33.9, platelet 162, sodium 139, potassium 4.6, BUN 8, creatinine 1.0 IMPRESSION: Syncope and collapse Persistent atrial fibrillation with slow ventricular rate Hyperlipidemia Diabetes PLAN: Heart rates have improved off of digoxin Continue metoprolol May be discharged from the cardiac standpoint Outpatient follow-up with primary band saw marker Dr. Garcia I am dictating on behalf of Dr Jono Ambriz's history/physical and assessment/plan. Objective - Vital Signs Vital signs: Vital Signs Temp 97.8 F 08/06/23 03:15 Pulse 66 08/06/23 08:16 Resp 16 08/06/23 08:16 BP 127/70 08/06/23 08:16 Pulse Ox 99 08/06/23 08:16 FiO2 Intake & Output 08/05/23 08/06/23 08/06/23 18:59 06:59 18:59 Intake Total 10 90 Balance 10 90 Intake: IV 10 Invasive Line 1 10 Oral 90 Other: # Voids 1 - Labs CBC & Chem 7: 08/06/23 08:02 08/06/23 08:02 Labs: Abnormal Lab Results - Last 24 Hours (Table) 08/05/23 08/05/23 08/06/23 Range/Units 16:25 19:50 08:02 RBC 4.17 L (4.30-5.90) m/uL Hgb 9.7 L (13.0-17.5) gm/dL Hct 33.9 L (39.0-53.0) % MCH 23.2 L (25.0-35.0) pg MCHC 28.5 L (31.0-37.0) g/dL RDW 16.0 H (11.5-15.5) % Lymphocytes # 0.9 L (1.0-4.8) k/uL BUN (9-20) mg/dL Glucose (74-99) mg/dL POC Glucose (mg/dL) 139 H 122 H (70-110) mg/dL 08/06/23 Range/Units 08:02 RBC (4.30-5.90) m/uL Hgb (13.0-17.5) gm/dL Hct (39.0-53.0) % MCH (25.0-35.0) pg MCHC (31.0-37.0) g/dL RDW (11.5-15.5) % Lymphocytes # (1.0-4.8) k/uL BUN 8 L (9-20) mg/dL Glucose 157 H (74-99) mg/dL POC Glucose (mg/dL) (70-110) mg/dL
[2023-08-06 11:59] LABS: Glucose,Whole Blood 101 mg/dL (70-110)
[2023-08-06 12:10] VITALS: BP 127/62; PULSE 57; RESP 18
--- NOTE | 2023-08-06 21:12 | P.DS ---
Providers Date of admission: 08/05/23 02:44 Attending physician: Martha Flanagan Consults: 08/05/23 02:44 Consult Physician Urgent Consulting Provider: [facility] Consult Reason/Comments: syncope, afib with slow ventricular response Do you want consulting provider notified?: Yes Primary care physician: Isiah Singleton MD Hospital Course: Diagnoses: Syncope with fall and blunt head trauma. Remain stable persistant atrial fibrillation on Xarelto with slow VR , digoxin was discontinued Hypertension Diabetes mellitus Hyperlipidemia Hospital course: This is a pleasant 67 years old male with past medical history of atrial fibrillation on blood thinner Xarelto and digoxin, his chemical process engineer is Dr. Gutierres, diabetes mellitus, hypertension, hyperlipidemia Patient woke up in the night going from his bed to the restroom where he passed out for about 10 minutes,he hit his head. Patient admitted to the general medical floor. He was monitored for 24 hours and he remains asymptomatic. No headache , no more dizziness, no chest pain dyspnea, no other complaints Evaluated by chemical process engineer and his digoxin was stopped. Patient was eager to go home today She was cleared for discharge by chemical process engineer Problems and management plan were discussed with the patient and he verbalized understanding and acceptance Patient was found stable and can be discharged home in guarded prognosis however he needs follow-up as an outpatient. Patient was instructed to follow up with PCP within one week and patient agrees Patient was instructed to follow up with his chemical process engineer Dr. Garcia in 1 week after discharge and he agrees Physical exam Gen: patient is a AAOx3, no distress CVS: S1-S2, RRR, no murmur Lungs: B/L CTA, no wheezing Abdomen: soft, no distention, no tenderness, positive bowel sounds Extremity: no leg edema or induration Time spent more than 35 minutes Patient Condition at Discharge: Stable Plan - Discharge Summary Discharge Rx Participant: No New Discharge Prescriptions: Continue Acetaminophen Tab [Tylenol] 1,000 mg PO Q8H PRN PRN Reason: Fever And/ Or Pain metFORMIN HCL ER [Glucophage XR] 500 mg PO PC-BID@0900,1300 Metoprolol Tartrate [Lopressor] 75 mg PO BID Cholecalciferol [Vitamin D3 (25 Mcg = 1000 Iu)] 50 mcg PO DAILY traZODone HCL [Desyrel] 100 mg PO HS Omeprazole [PriLOSEC] 40 mg PO AC-BID Baclofen 10 mg PO BID Albuterol Sulfate [Albuterol Sulfate Hfa] 2 puff PO RT-Q4H PRN PRN Reason: Shortness Of Breath allopurinoL 300 mg PO DAILY Rivaroxaban [Xarelto] 20 mg PO HS Atorvastatin [Lipitor] 10 mg PO HS Discharge Medication List Acetaminophen Tab [Tylenol] 1,000 mg PO Q8H PRN 08/05/23 [History] Albuterol Sulfate [Albuterol Sulfate Hfa] 2 puff PO RT-Q4H PRN 08/05/23 [History] Atorvastatin [Lipitor] 10 mg PO HS 08/05/23 [History] Baclofen 10 mg PO BID 08/05/23 [History] Cholecalciferol [Vitamin D3 (25 Mcg = 1000 Iu)] 50 mcg PO DAILY 08/05/23 [History] Metoprolol Tartrate [Lopressor] 75 mg PO BID 08/05/23 [History] Omeprazole [PriLOSEC] 40 mg PO AC-BID 08/05/23 [History] Rivaroxaban [Xarelto] 20 mg PO HS 08/05/23 [History] allopurinoL 300 mg PO DAILY 08/05/23 [History] metFORMIN HCL ER [Glucophage XR] 500 mg PO PC-BID@0900,1300 08/05/23 [History] traZODone HCL [Desyrel] 100 mg PO HS 08/05/23 [History] Follow up Appointment(s)/Referral(s): Isiah Singleton MD [Primary Care Provider] - 1 Week (Please call to schedule follow up appoitment) Oliva Garcia MD [REFERRING] - 1 Week (Please call to schedule follow up appoitment) Patient Instructions/Handouts: Syncope (GEN) Activity/Diet/Wound Care/Special Instructions: heart healthy diet activity is restricted till you see your doctor Discharge Disposition: HOME SELF-CARE
== END 2023-08-06 14:28 | disposition home or self-care (01) ==
LOC: EC 01:00 → 3SCARD 02:44
PROVIDERS: ADMIT Hospitalist; ATTEND Hospitalist
DX: R55 Syncope and collapse (principal); R00.1 Bradycardia, unspecified; S09.90XA Unspecified injury of head, initial encounter; W18.30XA Fall on same level, unspecified, initial encounter; Y93.01 Activity, walking, marching and hiking; E11.9 Type 2 diabetes mellitus without complications; E78.5 Hyperlipidemia, unspecified; I48.0 Paroxysmal atrial fibrillation; D64.9 Anemia, unspecified; E83.42 Hypomagnesemia; I10 Essential (primary) hypertension; Z79.01 Long term (current) use of anticoagulants; Z79.899 Other long term (current) drug therapy; Z79.84 Long term (current) use of oral hypoglycemic drugs; Z88.0 Allergy status to penicillin
CPT/HCPCS: 96365; 96366; 99285; 36415; 93005; 93306; 97161; 80053; 80048; 84443; 80162; 83540; 83550; 83735; 84484; 85025 ×2; 85610; 85730; 73502; 71046; 72125; 70450; G0378 ×2; G0480; J3475; 80320